=== PATIENT | male | born 1970 | race African-American/Black ===

== ENCOUNTER 2018-01-26 05:30 | Day surgery (SDC) | payer OTHER ==
[~2018-01-26] VITALS: Ht 170.2 cm; Wt 96.2 kg
--- NOTE | ~2018-01-26 | OP ---
PATIENT NAME: LEONARDA KOO MEDICAL RECORD: [id number] :70 LOCATION:[facility] ADMISSION DATE: SURGEON: REYNALDO KEARNS MD DATE OF OPERATION: 01/26/2018 PREOPERATIVE DIAGNOSES: 1. Anal fissure, symptomatic. 2. Hematochezia, likely due to bleeding internal hemorrhoids. 3. Intractably symptomatic external hemorrhoids. POSTOPERATIVE DIAGNOSES: 1. Anal fissure, symptomatic. 2. Hematochezia, likely due to bleeding internal hemorrhoids. 3. Intractably symptomatic external hemorrhoids. PROCEDURE: 1. Anal evaluation under anesthesia. 2. Lateral internal sphincterotomy. 3. Ligation of internal hemorrhoidal bundles times 5. SURGEON: Reynaldo Kearns MD SHIPPER: None. BLOOD LOSS: Less than 50 cc. ANESTHESIA: General. COMPLICATIONS: None. The risks, possible complications and alternatives to the procedure were explained to the patient. He elects to proceed. I told the patient that if I identified a significant hemorrhoidal problem, I would likely ligate the hemorrhoidal bundles. If I identified an anal fistula, I would perform a fistulotomy. If I identified an anal fissure, I would perform a lateral internal sphincterotomy. We discussed the risk of bleeding requiring an emergency reoperation, infection, recurrent hemorrhoidal symptoms as well as anal stenosis and fecal incontinence. OPERATIVE COURSE: The patient was conveyed to the operating room electively on 01/26/2018. General anesthesia was induced by the anesthesia staff. The patient was placed in the lithotomy position. The buttocks were taped laterally. I dilated the anus laterally to 3 fingers. U-shaped anal retractors were placed. A mature chronic posterior lying anal fissure was noted. Submucosal flaps were created sharply. I then closed these over the fissure with interrupted horizontal mattress 3-0 Vicryls. There were approximately 5 internal hemorrhoidal bundles. They were large. There was internal hemorrhoidal prolapse of the anus, which was third degree. I ligated the anal bundles with suture ligature of 3-0 Vicryls. An incision was then accomplished at 3 o'clock over the anal mucosa. I dissected down to the internal and external anal sphincters. I identified the internal sphincter. I then divided approximately two-thirds of the internal sphincter with the scissors. I then closed the anal mucosa with a running locking 3-0 Vicryl suture. Gelfoam was applied within the anus and lower rectum. A combination of a steroid preparation and Marcaine were used to infiltrate the perianal tissues for OPERATIVE REPORT [id number] LEONARDA KOO postoperative analgesia. An anesthetic ointment was then applied to the external hemorrhoids. The patient was then extubated and conveyed to the post-anesthesia care unit where he was in stable condition. He will be dismissed back to the alf with hydrocodone as well as Valium and Colace. My recommendation is that he not do any strenuous activity for 3-4 weeks. If additional analgesia is needed, he can be placed on a nonsteroidal anti-inflammatory and in fact is already on Naprosyn. The patient complained of reflux and stated that he wanted to be placed back on a proton pump inhibitor. TRANSINT:[id number] Voice Confirmation ID: [id number] DOCUMENT ID: [id number] CC: Gregory Tabor found. REYNALDO KEARNS MD at 1840 CC: [id number] DICTATION DATE: 01/26/18 1147 [employer]UM[employer]OGR[employer] FACULTY MEMBER: 01/26/18 1201 [facility] 01/26/18 [facility] [address] [place] [address]
[2018-01-26] MEDS ORDERED: NAPROXEN250 MG PO (07:43)
[2018-01-26 07:58] VITALS: BP 115/73; Ht 170.2 cm; Wt 96.2 kg
== END 2018-01-26 14:40 | disposition home or self-care (01) ==
LOC: D.OPS 05:30
DX: K60.2 Anal fissure, unspecified (principal); K64.2 Third degree hemorrhoids; K64.4 Residual hemorrhoidal skin tags; Z01.812 Encounter for preprocedural laboratory examination